=== PATIENT | male | born 1975 | race Caucasian/White ===

== ENCOUNTER 2022-01-31 17:23 | Outpatient (RCR) | payer OTHER, SELFPAY ==
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
--- NOTE | 2022-03-08 07:17 | HP.PTDCNRP_ITS ---
ODALIS THACKER MELO was seen in my office for initial evaluation on 01/31/22. The following Plan of Care was established for this patient: Initial Frequency: 1x/Week Initial Duration: 2-4 Weeks Patient/Client Instruction: Educate patient on: Condition, Plan of Care For the Purpose of:: To increase tolerance to activity/condition/position For the Purpose of:: To increase tolerance to activity/condition/position, To improve ability of physical actions for home/community/work/leisure This patient was last seen in our office 01/31/22. Pertinent comments regarding their Physical therapy will appear below: Pt seen for evaluation and treatment of positional vertigo with BBQ roll. He did not attend any further visits but did stop in the week after his treatment to say he was doing well and had no recurrences. He would call if he did. At th is point, it has been over a month and I will discontinue from my care. At this point I will be discontinuing this patient from physical therapy. I would be happy to see this patient again in the future if found appropriate by the physician. Thank you! Wilbert Archer, DPT, OCS, CSCS Balance/Gait/Functional tests - Balance/Special Test Scores Functional Gait Assessment Score: 29 % Disability: 3.3400 Dizziness Score: 12
== END 2022-01-31 19:00 | disposition home or self-care (01) ==
LOC: PT 17:23
PROVIDERS: Referring Provider Physician Assistant; Visit Provider Physician Assistant
DX: R42 Dizziness and giddiness (principal)
CPT/HCPCS: 97161

== ENCOUNTER 2022-06-07 08:19 | Emergency (ER) | payer OTHER, SELFPAY ==
[2022-06-07 08:20] VITALS: BP 132/74; PULSE 70; RESP 16; TEMP 36.4; O2SAT 97; BMI 22.8
--- NOTE | 2022-06-07 08:33 | RAD_ITS ---
STUDY: X-RAY - LEFT FOOT CLINICAL: Male, 46 years old. Pain following injury. TECHNIQUE: 3 view(s) of the foot. COMPARISON: None. FINDINGS: Normal talus, calcaneus, and tarsal bones. Normal visualized subtalar, talonavicular, calcaneocuboid, tarsal and tarsometatarsal articulations. Normal metatarsi. Normal metatarsophalangeal joint of the great toe. Normal tibial and fibular sesamoid bones. Normal interphalangeal joint of the great toe. Normal phalanges of the great toe. Normal second through fifth metatarsophalangeal joints. Normal interphalangeal joints and phalanges of the lesser toes. The soft tissue structures are unremarkable. RAD/Foot min 3 Views IMPRESSION: Normal x-ray examination of the foot. Electronically Signed: Ab Stratton MD at 9:05 EDT ,
--- NOTE | 2022-06-07 08:34 | EDS_ITS ---
HPI History of Present Illness Chief Complaint: Lower Extremity Injury Detail of Chief Complaint: Left foot injury Informant: patient Onset/Context/Timing Onset: Yesterday Timing: Waxes and wanes Quality of Pain: Aching and Throbbing Current Severity: Moderate Maximum Severity: Moderate Narrative Narrative: Patient presents with left foot injury. He states he was coming off a roof on a ladder last evening when he rode the ladder down to the ground. His left foot caught hard on the bottom rung and he has bruising and pain to the arch on the plantar surface of his left foot. He has not been able to weight-bear. He denies pain to his back, hip, knee. No paresthesias. He is able to wiggle toes. [facility] Medical History Back pain History of hemorrhoids Neck pain Shoulder pain Vertigo Home Medications naproxen 500 mg tablet (Naprosyn) 500 mg PO BID PRN pain #20 tabs 06/07/22 [Rx Last Taken Unknown] Allergy/AdvReac Type Severity Reaction Status Date / Time No Known Allergies Allergy Verified 06/07/22 08:24 Family History Uncle Cancer Surgical History History of adenoidectomy History of tonsillectomy Social History Smoking Status: Former smoker alcohol intake: current alcohol intake frequency: a few times a week [facility] ED Constitutional Constitutional ED: Denies chills or fever(s) Eyes Eyes: Denies change in vision or discharge from eye(s) ENT ENT ED: Denies discharge from eye(s), rhinorrhea or sore throat Cardiovascular Cardiovascular: Denies chest pain or palpitations Respiratory/Chest Respiratory/Chest: Denies cough or dyspnea Gastrointestinal Gastrointestinal: Denies abdominal pain, diarrhea, nausea or vomiting Genitourinary Genitourinary ED: Denies dysuria Musculoskeletal Musculoskeletal: Reports extremity pain; Denies back pain Integumentary Denies Abrasions or rash Neurologic Neurologic: Denies headache(s) or weakness Psychiatric Psychiatric: Denies anxiety or depression Allergic/Immunologic Allergic/Immunologic ED: Denies lip swelling or urticaria EXAM Physical Exam Const Vital Signs: 06/07/22 08:20 Temperature 97.6 F L Temperature Source Temporal Pulse Rate 70 Respiratory Rate 16 Blood Pressure 132/74 H Blood Pressure Mean 93 Pulse Ox 97 Oxygen Delivery Method Room Air Positive well nourished and well developed General Appearance ED: well developed HEENT Reports normocephalic and head/scalp atraumatic Eyes PERRL and EOMs intact bilaterally Neck supple Chest Wall inspection of chest normal Resp normal respiratory effort Cardio regular rate and regular rhythm GI Palpation: soft Extremity Extremity Narrative: Ecchymosis and tenderness to the arch on the plantar surface of his left foot. No tenderness over the ankle, proximal fibula, knee. Good distal pulses. Can wiggle toes and has good cap refill and sensation. Neuro oriented x3 and no sensory deficits noted Sensorium / Orientation: alert Psych mental status grossly normal Skin Skin Narrative: Ecchymosis as noted above. MDM MDM MDM Narrative Medical decision making narrative: Patient declined anything for pain here. Left foot x-rays obtained. Radiography Diagnostic Testing: Clinical Impression(s) from Imaging Studies Foot X-Ray 06/07/22 08:33 IMPRESSION: Normal x-ray examination of the foot. Electronically Signed: Ab Stratton MD at 9:05 EDT , Treatment and Re-Evaluation Narrative: Left foot x-rays per my interpretation reveal no acute fracture. Clint wrap is applied to the foot. He wants to get crutches at the local pharmacy. I will send a prescription for naproxen for him. Discharge Plan Triage Chief Complaint: Lower Extremity Injury ED Provider: Julia Mondragon Dx/Rx/DC Orders Clinical Impression: Contusion of foot, left Instructions: ED Foot Contusion Prescriptions: New naproxen [Naprosyn] 500 mg tablet 500 mg PO BID PRN (Reason: pain) Qty: 20 0RF Primary Care Provider: Taco Lua Referrals: Taco Lua MD [Primary Care Provider] - 1 Week if not improving Disposition Disposition: Home, Self Care
== END 2022-06-07 09:18 | disposition home or self-care (01) ==
PROVIDERS: Emergency Provider Emergency Medicine; PCP Family Medicine; Visit Provider Emergency Medicine
DX: S90.32XA Contusion of left foot, initial encounter (principal); Z87.891 Personal history of nicotine dependence; W22.8XXA Striking against or struck by other objects, initial encounter
CPT/HCPCS: 73630; 99282

== ENCOUNTER 2022-07-01 16:00 | Outpatient (RCR) | payer SELFPAY, OTHER ==
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
--- NOTE | 2022-07-01 16:58 | HP.PTDCSUM_ITS ---
It has been my pleasure to treat ODALIS ALEJO referred by JORGE Davis, with the diagnosis of CERVICALGIA for a total of 5 visit(s). Discharge Date: Please see the following information for a summary of their discharge status. Subjective: PATIENT REPORTS HIS LEFT NECK PAIN IS LESS FREQUENT AND HE RELATES IT TO MAYBE THE STRETCHING AND STARTING TO SWIM. PATIENT REPORTS HE KNOWS WHAT TO DO ON HIS OWN NOW AND IS HOPEFUL THAT IT WILL CONTINUE TO IMPROVE WITH THE HOME EX'S. HAS RESUMED ALL INDEP EX'S WITH RADIATION THERAPY TECHNICIAN. neck and SH Pain Intensity (Out of 10): 2 % Improvement: 40 Objective/Function: PATIENT WAS SEEN TODAY FOR RE-ASSESSMENT OF PROGRESS TOWARD THE SET PT GOALS AND THE NEED FOR FURTHER PHYSICAL THERAPY VS READINESS FOR DISCHARGE. PATIENT IS REPORTING 40% IMPROVEMENT IN THERE IS ABOUT A 50% IMPROVEMENT IN HIS OSWESTRY SCORE. HE IS INDEP WITH A HEP AND APPROPRIATE FOR DISCHARGE TO INDEP EX AT THIS TIME. PATIENT IS AGREEABLE. UPON EXAM TODAY HE CONTINUES TO HAVE CERVICAL ROM MVMT LOSS SIMILAR TO EVAL AND HARMEET UE ROM AND STRENGTH REMAINS GOOD. ENCOURAGED PATIENT TO FOLLOW UP WITH SPINE CENTER IF SX'S DO NOT RESOLVE IN A FEW WEEKS. Goal 1:: DECREASE C/O NECK AND L SHLD PAIN Goal 2:: IMPROVE LIFTING, READING, SLEEP, DRIVING AND RECREATIONAL FUNCTION. Goal 3:: INSTRUCT IN PROPHYLAXIS Plan: D/C TO INDEP EX AND PHYSICIAN FOLLOW UP NEEDED. If there are questions or concerns regarding this patient's physical therapy, please feel free to call me at [phone]. Thank you for the referral of this patient. Sincerely, Kavita Jordan, PT, Cert MDT Balance/Gait/Functional tests - Balance/Special Test Scores Oswestry Neck Score: 4
== END 2022-07-01 19:00 | disposition home or self-care (01) ==
LOC: PT 16:00
PROVIDERS: PCP Family Medicine; Visit Provider Nurse Practitioner Acute Care
DX: M54.2 Cervicalgia (principal)
CPT/HCPCS: 97012; 97035; 97110; 97112; 97140; 97162; 97164